=== PATIENT | male | born 1980 | race Caucasian/White ===

== ENCOUNTER 2025-02-10 09:34 | Outpatient (AMB) | payer OTHER, SELFPAY ==
--- NOTE | 2025-02-10 09:36 | MHC.OFFVIS ---
Vital Signs 02/10/25 09:38 Height 6 ft Weight 193 lb BMI 26.2 BP 131/80 Blood Pressure Location Rt brachial Position Sitting Respiration 16 Pulse 61 Pulse Source Pulse Oximeter Pulse Oximetry (%) 97 Oxygen Delivery Method Room Air Intake Visit Reasons: LOW BACK PAIN Rn Ante Partum Required: No Accompanied by: Self / Same As Patient Allergies No Known Allergies Allergy (Verified 02/10/25 09:40) HPI Comments Details: The patient is a 44-year-old male presenting with chronic low back and neck pain. 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 The pain is described as severe, with episodes of sharp, stabbing sensations, particularly when moving or twisting. The patient has been diagnosed with osteoarthritis in both the lumbar and cervical spine, confirmed by previous x-rays. He has undergone physical therapy focused on the lower back, which provided temporary relief but did not resolve the pain. The patient regularly takes ibuprofen, typically twice a day, to manage the pain, but expresses concern about long-term use and its effects on his kidneys. Has tried tizanidine with no improvement. The patient reports a tingling sensation in his legs, particularly after prolonged standing, and experiences muscle spasms when coughing or sneezing. He has tried various interventions, including stretching exercises and yoga, which provide some relief. The patient has also attempted to manage his pain through lifestyle modifications, such as switching from running to using a stationary bike. Denies radiation of the pain down either lower extremity. Denies red flag symptoms including new loss of bowel, bladder or saddle anesthesia. 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 - Quality: Severe, sharp, stabbing sensations, particularly when moving or twisting. - Location: Primarily in the lower back and neck, with extension to the left leg. - Exacerbating factors: Movement, twisting, coughing, sneezing, prolonged standing. - Relieving factors: Rest, stretching exercises, yoga, use of a stationary bike. - Interference: Affects daily activities, requiring regular use of ibuprofen for pain management. - Affect: Pain impacts daily activities and causes concern about long-term health implications. - Analgesia: Currently using ibuprofen twice daily, with occasional use of Tylenol; goal is to reduce pain without excessive medication use. - Adverse Effects: Concern about potential kidney damage from prolonged ibuprofen use. - Activities of Daily Living: Pain limits physical activities and requires lifestyle adjustments, such as switching from running to cycling. - Aberrant Drug Related Behaviors: No evidence of medication misuse or abuse reported. FOR[facility], LATER [facility] Medical History (Updated 02/10/25 @ 10:40 by Cristal Sanders APRN, [employer]) Mild asthma Migraine Depressed Insomnia Anxiety Erectile dysfunction Cold sore Back pain Surgical History (Updated 02/09/25 @ 14:05 by Irlanda Chan MA) History of lobectomy of thyroid H/O knee surgery H/O removal of cyst Review of Systems Const Details: - Musculoskeletal: Reports chronic low back and neck pain, muscle spasms, and tingling in the legs. - Neurological: Reports tingling sensation in the legs, denies numbness or weakness. - Gastrointestinal: Denies any gastrointestinal symptoms related to ibuprofen use. - Endocrine: Denies diabetes. Physical Exam Exam Exam: General: awake, alert, oriented. Answers questions appropriately. Fully engaged in examination. Skin: warm, dry, intact HEENT: Normocephalic. Hearing intact. Cardiac: External chest normal in appearance. Respiratory: No cough, audible wheezing or stridor. Abdomen: without gross distension. MS: No obvious swelling or deformities. Able to stand on bilateral tiptoes and bilateral heels.? Able to transition from sit to stand unassisted. Ambulates with bilaterally normal heel strike and toe off SLR negative bilaterally Bilateral lower extremity strength 5/5 Valsalva positive Tenderness over midline lumbar vertebrae and lumbar paraspinal muscles Nontender over bilateral PSIS Facet loading positive bilaterally Neurological: Oriented to person, place, time and situation. Thought process intact. No gait abnormalities appreciated. Psychiatric: Appropriate mood and affect. Good judgment and insight. Vital Signs: Last Vital Signs Pulse 61 02/10/25 09:38 Resp 16 02/10/25 09:38 BP 131/80 02/10/25 09:38 Pulse Ox 97 02/10/25 09:38 Oxygen Delivery Method Room Air 02/10/25 09:38 BMI result Body Mass Index 26.2 Results Reviewed Results Reviewed: X-rays available for review, patient reports they show arthritis. Assessment & Plan Assessment & Plan (1) Degenerative disc disease, lumbar: Code(s): M51.369 - Other intervertebral disc degeneration, lumbar region without mention of lumbar back pain or lower extremity pain Category: Medical (2) Lumbar spondylosis: Code(s): M47.816 - Spondylosis without myelopathy or radiculopathy, lumbar region Category: Medical (3) Intractable back pain: Code(s): M54.9 - Dorsalgia, unspecified Category: Medical (4) Paresthesia of bilateral legs: Code(s): R20.2 - Paresthesia of skin Category: Medical Plan The plan includes obtaining an MRI to further evaluate the extent of the patient's spinal condition, particularly to assess for any disc bulges or spinal stenosis that may be contributing to the symptoms. In addition, a prescription for a different muscle relaxer will be provided to help manage muscle spasms, with instructions to avoid use while driving or working. The patient will also be prescribed diclofenac as an alternative to ibuprofen, to be taken twice daily, to manage pain while minimizing potential adverse effects on the kidneys. The patient is advised to continue with lifestyle modifications, including the use of a stationary bike and stretching exercises, to help alleviate symptoms. Follow-up will be scheduled after the MRI to review results and adjust the treatment plan accordingly. The patient was informed about the need for follow-up after the MRI to review the results and determine the next steps in his treatment plan. Patient was informed and verbally consented to the use of an ambient scribe for clinic note documentation during this visit. Orders: Orders MR lumbar spine wo con Today M47.816 - Spondylosis without myelopathy or radiculopathy, lumbar region, M51.369 - Other intervertebral disc degeneration, lumbar region without mention of lumbar back pain or lower extremity pain, M54.9 - Dorsalgia, unspecified, R20.2 - Paresthesia of skin Medications: New hydroxyzine HCl 25 mg PO TID PRN 1 tab 0RF itching sildenafil (Viagra) administer 30 minutes to 4 hours before activity 50 mg PO DAILY PRN 1 tab 0RF sexual activity trazodone 100 mg PO BEDTIME 1 tab 0RF valacyclovir 1,000 mg PO DAILY 1 tab 0RF baclofen May cause drowsiness, no driving while taking this medication 10 mg PO BID 60 tabs 0RF diclofenac potassium Take with food, do not take with any other nonsteroidal anti-inflammatory medications 50 mg PO BID 60 tabs 3RF montelukast 10 mg PO DAILY 1 tab 0RF Patient Instructions: - Schedule and complete the MRI as soon as possible. - Take the prescribed muscle relaxer and diclofenac as directed, avoiding use while driving or working. - Continue with stretching exercises and use of a stationary bike to help manage symptoms. - Follow up with the clinic after the MRI to discuss results and next steps. Coding Level of Care Code New Pt Level 4 (13219) Complex EM visit Add On G2211 Diagnoses Degenerative disc disease, lumbar M51.369 Lumbar spondylosis M47.816 Intractable back pain M54.9 Paresthesia of bilateral legs R20.2
[2025-02-10 09:38] VITALS: BP 131/80; PULSE 61; RESP 16; O2SAT 97; BMI 26.2
--- OUTSIDE RECORDS SUMMARY | 2025-02-10 10:09 | XMS_ITS | Patient Health Record ---
Author Organization [facility] Address [address] [place] [address] Care Team Providers Care Commercial Escrow Assistant Name Role Phone Nishant Timmanpreet Primary Care Provider Reason For Referral No Information Medications Medication SIG (Take, Route, Frequency, Duration) Notes Start Date End Date Status Cetirizine HCl 10 MG 1 po daily for allergies 08/03/2016 Active Percocet 5-325 MG 1 po q 6 hours prn pain. 12/28/2017 Active Polytrim 36570-8.1 UNIT/ML-% one drop to affected eye(s) four times a day for one week 09/12/2019 Active Ibuprofen 800 MG take one tab by mouth three times a day as needed for pain/fever 09/12/2019 Active Keflex 500 MG 1 Capsule By Tarah th 4 times a day for 10 days 12/28/2017 Active ProAir RespiClick 108 (90 Base) MCG/ACT 2 puffs q4h prn cough/sob/wheezing (BIN: [id number]; PCN: CN; GROUP: [id number]; ID: [id number]) 03/21/2017 Active Viagra MG 09/12/2019 Active Duexis 800-26.6 MG take one tab by mouth three times daily as needed for pain/fever 09/13/2017 Active Problems Problem Type SNOMED Code ICD Code Onset Dates Problem Status W/U Status Risk Notes Problem Acute upper respiratory infection (17960567) Acute upper respiratory infection, unspecified (J06.9) 04/28/20 14 Active confirmed Problem Upper respiratory tract infection caused by Influenza (9556751650805811 2) Influenza due to unidentified influenza virus with other respiratory manifestations (J11.1) 08/03/19 15 Active confirmed Problem Acute bronchitis , unspecified (J20.9) 08/08/19 17 Active confirmed Problem Uncomplicated asthma (disorder) (538176460) Unspecified asthma, uncomplicated (J45.909) 08/03/19 17 Active confirmed MILD Problem Epidermal cyst (080319377) Epidermal cyst (L72.0) 12/29/19 18 Active confirmed Problem Cough (33185933) Cough (R05) 08/08/19 17 Active confirmed Problem 532944534 Encounter for general adult medical examination without abnormal findings (Z00.00) Active confirmed Plan Of Treatment No Information Insurance Providers Payer Name Payer Address Payer Phone Subscriber Number Group Number Insured Name Patient Relationship to Insured Coverage Start Date Coverage End Date [facility]- HMO/PPO [address] [place] [address] [id number] MONIKA MALORIE Self - patient is the insured [address] [id number] MONIKAMALORIE OLIVEIRA Self - patient is the insured 1 Medical (General) History Surgical History Surgery Date(Month/Year) Knee Arthroscopy Right Knee twice - menisucus and ACL tear. Left Knee meniscus 1996
== END 2025-02-10 10:23 | disposition home or self-care (01) ==
LOC: HO.PMC 09:35
PROVIDERS: PCP Nurse Practitioner Family; Visit Provider Registered Nurse Emergency
DX: M51.369 Other intervertebral disc degeneration, lumbar region without mention of lumbar back pain or lower extremity pain (principal); M47.816 Spondylosis without myelopathy or radiculopathy, lumbar region; M54.9 Dorsalgia, unspecified; R20.2 Paresthesia of skin
CPT/HCPCS: 99204

== ENCOUNTER → 2025-02-27 10:10 | Outpatient (BNV) | payer OTHER, SELFPAY | PROVIDERS: PCP Nurse Practitioner Family; Visit Provider Radiology Diagnostic Radiology | DX: M51.369 Other intervertebral disc degeneration, lumbar region without mention of lumbar back pain or lower extremity pain (principal) | CPT/HCPCS: 72148 ==

== ENCOUNTER 2025-02-27 10:19 | Outpatient (REF) | payer OTHER, SELFPAY ==
--- NOTE | ~2025-02-27 | MR_ITS ---
CLINICAL HISTORY: M51.369 - Other intervertebral disc degeneration, lumbar region without ... --- Additional Notes or Special Instructions: Intractable lower back pain, bilateral lower extremity paresthesias. MR lumbar spine without contrast. COMPARISON: None provided. FINDINGS: Straightening of the normal lumbar lordosis. Vertebral heights are maintained. Modic type 1/2 degenerative endplate changes at L2-L3. Schmorl's node present at the adjacent endplates of L2-3, L3-4 and along the inferior endplate of L4. The conus terminates at superior endplate of L1 and is otherwise unremarkable. Visualized portions of the sacrum are normal. L5-S1: Intervertebral disc is normal in height. No significant disc bulge or central canal stenosis. L4-L5: Anterior marginal osteophytes. Loss of disc space height. Mild broad-based posterior disc bulge. Mild bilateral neural foraminal narrowing. Mild spinal canal stenosis at this level. L3-L4: Desiccation of the disc. Mild broad-based posterior disc bulge. Mild left neural foraminal narrowing. Mild spinal canal stenosis at this level. L2-L3: Anterior marginal osteophytes. Loss of disc space height. Posterior disc annular tear. Broad-based posterior disc bulge. [id number]-gbooqqzr left neural foraminal narrowing. Moderate spinal canal stenosis at this level. L1-L2: Anterior marginal osteophytes. No significant neural foraminal narrowing. The visualized paraspinal musculature and retroperitoneal soft tissues are unremarkable. IMPRESSION: 1. Straightening of the normal lumbar lordosis. 2. Moderate spinal canal stenosis at L2-3. 3. Mild spinal canal stenosis at L3-4 and L4-5. 4. Moderate to advanced multilevel degenerative changes of the lumbar spine. This document has been electronically signed by: Nilson Alamo MD on 02/27/2025 15:18:01
--- OUTSIDE RECORDS SUMMARY | 2025-02-27 10:33 | XMS_ITS | Continuity of Care Document ---
Author Name [facility] Organization [facility] Care Team Providers Care Dental Treatment Coordinator Name Role Phone [facility] Unavailable Unavailable Procedures Combined list of: 1) Procedures from Department of Veterans Affairs facilities going back up to thelast 18 months, not all VA non-surgical procedures are included; 2) All procedures from the Department of Defense facilities. Procedure Procedure Type Code Date Perfomer Comments Debbie e UNLISTED THERAPEUTIC, PROPHYLACTIC OR DIAGNOSTIC INJECTION 12/04/2000 [facility] Social History Combined list of available smoking, tobacco, and other social history from Department of Defense and Veterans Affairs facilities. Social History Type Response Date Comment Sourc e This section is an empty social history section. [facility]
--- OUTSIDE RECORDS SUMMARY | 2025-02-27 10:34 | XMS_ITS | Patient Health Record ---
Author Organization [facility] Address [address] [place] [address] Care Team Providers Care Herbarium Worker Name Role Phone Nishant Timmanpreet Primary Care Provider [phone] Reason For Referral No Information Medications Medication SIG (Take, Route, Frequency, Duration) Notes Start Date End Date Status Cetirizine HCl 10 MG 1 po daily for allergies 08/03/2016 Active Percocet 5-325 MG 1 po q 6 hours prn pain. 12/28/2017 Active Polytrim 48159-0.1 UNIT/ML-% one drop to affected eye(s) four times a day for one week 09/12/2019 Active Ibuprofen 800 MG take one tab by mouth three times a day as needed for pain/fever 09/12/2019 Active Keflex 500 MG 1 Capsule By Tarah th 4 times a day for 10 days 12/28/2017 Active ProAir RespiClick 108 (90 Base) MCG/ACT 2 puffs q4h prn cough/sob/wheezing (BIN: [id number]; PCN: CN; GROUP: [id number]; ID: [id number]) 03/21/2017 Active Viagra MG 09/12/2019 Active Duexis 800-26.6 MG take one tab by mouth three times daily as needed for pain/fever 09/13/2017 Active Problems Problem Type SNOMED Code ICD Code Onset Dates Problem Status W/U Status Risk Notes Problem Acute upper respiratory infection (68225182) Acute upper respiratory infection, unspecified (J06.9) 04/28/20 14 Active confirmed Problem Upper respiratory tract infection caused by Influenza (5664479255004998 2) Influenza due to unidentified influenza virus with other respiratory manifestations (J11.1) 08/03/19 15 Active confirmed Problem Acute bronchitis (68597142) Acute bronchitis, unspecified (J20.9) 08/08/19 17 Active confirmed Problem Uncomplicated asthma (disorder) (550781251) Unspecified asthma, uncomplicated (J45.909) 08/03/19 17 Active confirmed MILD Problem Epidermal cyst (996810233) Epidermal cyst (L72.0) 12/29/19 18 Active confirmed Problem Cough (53453152) Cough (R05) 08/08/19 17 Active confirmed Problem 950383482 Encounter for general adult medical examination without abnormal findings (Z00.00) Active confirmed Plan Of Treatment No Information Insurance Providers Payer Name Payer Address Payer Phone Subscriber Number Group Number Insured Name Patient Relationship to Insured Coverage Start Date Coverage End Date [facility] N- HMO/PPO [address] [place] [address] [id number] MALORIE FRANK Self - patient is the insured [address] [id number] MALORIE FRANK Self - patient is the insured 1 Medical (General) History Surgical History Surgery Date(Month/Year) Knee Arthroscopy Right Knee twice - menisucus and ACL tear. Left Knee meniscus 1996
== END 2025-02-27 10:20 | disposition home or self-care (01) ==
LOC: HO.MRI 10:19
PROVIDERS: PCP Nurse Practitioner Family; Visit Provider Registered Nurse Emergency
DX: M51.369 Other intervertebral disc degeneration, lumbar region without mention of lumbar back pain or lower extremity pain (principal); M54.9 Dorsalgia, unspecified; M47.816 Spondylosis without myelopathy or radiculopathy, lumbar region; R20.2 Paresthesia of skin
CPT/HCPCS: 72148

== ENCOUNTER 2025-04-30 14:20 | Outpatient (AMB) | payer OTHER, SELFPAY ==
--- NOTE | 2025-04-30 14:53 | A.OFFVIS_ITS ---
Vital Signs 04/30/25 15:00 Height 6 ft Weight 187 lb 4 oz BMI 25.4 BP 128/78 Blood Pressure Location Rt brachial Position Sitting Pulse 68 Pulse Source Pulse Oximeter Pulse Oximetry (%) 100 Oxygen Delivery Method Room Air Intake Visit Reasons: LUMBAR SPINE MRI REVIEW Intake Note: Pain today 02/22 Evaluation Analyst Required: No Accompanied by: Self / Same As Patient Allergies No Known Allergies Allergy (Verified 04/30/25 15:00) HPI Comments Details: The patient is a 44-year-old male presenting with lumbar disc bulges and lumbar arthritis. Presenting for review of recent MRI LS. The patient reports significant lumbar pain with radiation down to the foot, accompanied by tightness, cramping, and numbness, particularly in the calves and toes. He has observed muscle twitching in the calves, especially when lying in bed at night, and notes that these symptoms have been increasing over time. The MRI findings indicate significant disc bulges at L2-3 and L4-5, with a smaller bulge at L3-4. The patient has been managing his condition with home exercises and stretching, which he has been doing for 20 years. He has been prescribed Baclofen and Diclofenac, which he reports help alleviate the pain better than ibuprofen, although the pain persists. He has not opted for steroid injections due to personal preference and concerns about the procedure. - Onset: Chronic lumbar pain with radiation to the foot - Quality: Tightness, cramping, numbness, and tingling - Location: Lower back, radiating to calves and toes - Exacerbating factors: Lying in bed, crossing legs - Relieving factors: Baclofen and Diclofenac - Affect: Pain is debilitating and impacts daily life - Analgesia: Baclofen and Diclofenac provide better relief than ibuprofen - Adverse Effects: None reported - Activities of Daily Living: Pain affects mobility and daily activities - Aberrant Drug Related Behaviors: None reported [facility] Medical History (Updated 02/10/25 @ 10:40 by Cristal Sanders APRN, SOUND TRUCK OPERATOR) Mild asthma Migraine Depressed Insomnia Anxiety Erectile dysfunction Cold sore Back pain Surgical History (Updated 02/09/25 @ 14:05 by Irlanda Chan MA) History of lobectomy of thyroid H/O knee surgery H/O removal of cyst Review of Systems Const Details: - Musculoskeletal: Reports lumbar pain with radiation to the foot, tightness, cramping, numbness, and tingling - Neurological: Reports muscle twitching in calves, numbness, and tingling in toes Physical Exam Exam Exam: General: awake, alert, oriented. Answers questions appropriately. Fully engaged in examination. Skin: warm, dry, intact HEENT: Normocephalic. Hearing intact. Cardiac: External chest normal in appearance. Respiratory: No cough, audible wheezing or stridor. Abdomen: without gross distension. MS: No obvious swelling or deformities. Able to transition from sit to stand unassisted. Ambulates with bilaterally normal heel strike and toe off Neurological: Oriented to person, place, time and situation. Thought process intact. No gait abnormalities appreciated. Psychiatric: Appropriate mood and affect. Good judgment and insight. Vital Signs: Last Vital Signs Pulse 68 04/30/25 15:00 BP 128/78 04/30/25 15:00 Pulse Ox 100 04/30/25 15:00 Oxygen Delivery Method Room Air 04/30/25 15:00 BMI result Body Mass Index 25.4 Results Reviewed Results Reviewed: 02/2025 MRI LS FINDINGS: Straightening of the normal lumbar lordosis. Vertebral heights are maintained. Modic type 1/2 degenerative endplate changes at L2-L3. Schmorl's node present at the adjacent endplates of L2-3, L3-4 and along the inferior endplate of L4. The conus terminates at superior endplate of L1 and is otherwise unremarkable. Visualized portions of the sacrum are normal. L5-S1: Intervertebral disc is normal in height. No significant disc bulge or central canal stenosis. L4-L5: Anterior marginal osteophytes. Loss of disc space height. Mild broad-based posterior disc bulge. Mild bilateral neural foraminal narrowing. Mild spinal canal stenosis at this level. L3-L4: Desiccation of the disc. Mild broad-based posterior disc bulge. Mild left neural foraminal narrowing. Mild spinal canal stenosis at this level. L2-L3: Anterior marginal osteophytes. Loss of disc space height. Posterior disc annular tear. Broad-based posterior disc bulge. [id number] left neural foraminal narrowing. Moderate spinal canal stenosis at this level. L1-L2: Anterior marginal osteophytes. No significant neural foraminal narrowing. The visualized paraspinal musculature and retroperitoneal soft tissues are unremarkable. IMPRESSION: 1. Straightening of the normal lumbar lordosis. 2. Moderate spinal canal stenosis at L2-3. 3. Mild spinal canal stenosis at L3-4 and L4-5. 4. Moderate to advanced multilevel degenerative changes of the lumbar spine. Assessment & Plan Assessment & Plan (1) Degenerative disc disease, lumbar: Code(s): M51.369 - Other intervertebral disc degeneration, lumbar region without mention of lumbar back pain or lower extremity pain Category: Medical (2) Lumbar spondylosis: Code(s): M47.816 - Spondylosis without myelopathy or radiculopathy, lumbar region Category: Medical (3) Intractable back pain: Code(s): M54.9 - Dorsalgia, unspecified Category: Medical (4) Paresthesia of bilateral legs: Code(s): R20.2 - Paresthesia of skin Category: Medical Plan The patient has been advised to continue with home exercises and stretching, which he has been performing for 20 years, as part of his pain management strategy. He is currently on Baclofen and Diclofenac, which have been effective in managing his pain better than ibuprofen. The option of steroid injections was discussed, but the patient declined due to personal preference and concerns about the procedure. Alternative management options, including a surgical consul tation, were offered, but the patient has not yet decided to pursue this route. During the consultation, we discussed the MRI findings, which revealed significant disc bulges at L2-3 and L4-5, with a smaller bulge at L3-4. I explained the potential benefits of steroid injections for reducing inflammation and discomfort, but the patient expressed a preference against this option. We also considered the possibility of a surgical consultation, which the patient is contemplating. I advised the patient to continue his current medication regimen and to ensure timely refills to prevent exacerbation of symptoms. Will increase the Baclofen to TID dosing as needed. Patient was informed and verbally consented to the use of an ambient scribe for clinic note documentation during this visit. Medications: Changed From baclofen May cause drowsiness, no driving while taking this medication 10 mg PO BID 60 tabs 0RF To baclofen May cause drowsiness, no driving while taking this medication 10 mg PO TID 90 tabs 3RF Refilled diclofenac potassium Take with food, do not take with any other nonsteroidal anti-inflammatory medications 50 mg PO BID 60 tabs 3RF Patient Instructions: - Continue home exercises and stretching regularly. - Take Baclofen and Diclofenac as prescribed. - Monitor medication supply to avoid running out. - Consider discussing surgical options with a specialist if symptoms persist. Coding Level of Care Code Est Pt Level 3 (75141) Complex EM visit Add On G2211 Diagnoses Degenerative disc disease, lumbar M51.369 Lumbar spondylosis M47.816 Intractable back pain M54.9 Paresthesia of bilateral legs R20.2
[2025-04-30 15:00] VITALS: BP 128/78; PULSE 68; O2SAT 100; BMI 25.4
== END 2025-04-30 15:31 | disposition home or self-care (01) ==
LOC: HO.PMC 14:20
PROVIDERS: PCP Nurse Practitioner Family; Visit Provider Registered Nurse Emergency
DX: M51.369 Other intervertebral disc degeneration, lumbar region without mention of lumbar back pain or lower extremity pain (principal); M47.816 Spondylosis without myelopathy or radiculopathy, lumbar region; M54.9 Dorsalgia, unspecified; R20.2 Paresthesia of skin
CPT/HCPCS: 99213